=== PATIENT | female | born 1975 | race Caucasian/White ===

== ENCOUNTER 2016-11-08 18:56 | Emergency (ER) | payer OTHER ==
[2016-11-08 20:20] LABS: UA SPECIFIC GRAVITY 1.015 (1.005-1.035); microscopic required? YES; urine erythrocyte 1+ (NEGATIVE)
[2016-11-08 22:12] VITALS: BP 108/86
== END 2016-11-08 22:12 | disposition home or self-care (01) ==
LOC: ED 18:56
PROVIDERS: Emergency Medicine
DX: N39.0 Urinary tract infection, site not specified (principal)
CPT/HCPCS: 87491; 87591; J1885

== ENCOUNTER 2017-05-31 10:56 | Emergency (ER) | payer OTHER ==
[2017-05-31 13:33] LABS: BASOPHIL % 0.4 % (0-2); PLATELET COUNT 239 x10^3mcL (130-400); RED CELL DISTRIBUTION WIDTH 12.6 % (11.5-14.5)
[2017-05-31 13:45] LABS: CARBON DIOXIDE 28.6 mmol/L (21-32); CHLORIDE SERUM 104 mmol/L (98-107); CREATININE SERUM 0.8 mg/dL (0.6-1.0); GFR1 > 60 mL/min; GLUCOSE SERUM 147 mg/dL (74-106); POTASSIUM SERUM 3.7 mmol/L (3.5-5.1); SODIUM SERUM 140 mmol/L (136-145)
[2017-05-31 13:54] LABS: ALKALINE PHOSPHATASE 99 U/L (46-116); ALT/SGPT 39 U/L (14-59); AMYLASE 39 U/L (25-115); AST/SGOT 23 U/L (15-37); BILIRUBIN TOTAL 0.4 mg/dL (0.20-1.00); LIPASE 82 IU/L (73-393); TOTAL PROTEIN, SERUM 7.3 g/dL (6.4-8.2)
[2017-05-31 13:56] LABS: ALBUMIN 3.3 g/dL (3.4-5.0)
[2017-05-31 15:45] LABS: microscopic required? YES; urine erythrocyte NEGATIVE (NEGATIVE)
[2017-05-31 16:36] VITALS: BP 110/60
== END 2017-05-31 16:38 | disposition home or self-care (01) ==
LOC: ED 10:56
PROVIDERS: Emergency Medicine
DX: R10.9 Unspecified abdominal pain (principal); R11.10 Vomiting, unspecified; R19.7 Diarrhea, unspecified; E46 Unspecified protein-calorie malnutrition
CPT/HCPCS: 83880; J0500; J3490; J7030

== ENCOUNTER 2017-08-10 10:28 | Emergency (ER) | payer OTHER ==
[~2017-08-10] VITALS: Ht 157.5 cm; Wt 64.9 kg
[2017-08-10 10:36] VITALS: Ht 157.5 cm; Wt 64.9 kg
[2017-08-10 11:36] VITALS: BP 101/65
== END 2017-08-10 11:36 | disposition home or self-care (01) ==
LOC: ED 10:28
DX: B34.9 Viral infection, unspecified (principal); J03.90 Acute tonsillitis, unspecified; Z90.5 Acquired absence of kidney

== ENCOUNTER 2018-01-03 20:45 | Emergency (ER) | payer OTHER ==
[~2018-01-03] VITALS: Ht 154.9 cm; Wt 64.6 kg
[2018-01-03 20:48] VITALS: Ht 154.9 cm; Wt 64.6 kg
[2018-01-03 23:02] VITALS: BP 123/79
== END 2018-01-03 22:55 | disposition home or self-care (01) ==
LOC: ED 20:45
PROC: 3E023NZ Introduction of Analgesics, Hypnotics, Sedatives into Muscle, Percutaneous Approach (ICD-10-PCS; principal; 2018-01-03)
DX: S39.012A Strain of muscle, fascia and tendon of lower back, initial encounter (principal); X58.XXXA Exposure to other specified factors, initial encounter; Y92.9 Unspecified place or not applicable
CPT/HCPCS: J1885

== ENCOUNTER 2018-08-21 16:18 | Emergency (ER) | payer OTHER ==
[~2018-08-21] VITALS: Ht 160 cm; Wt 66.7 kg
[2018-08-21 16:29] VITALS: Ht 160 cm; Wt 66.7 kg
[2018-08-21 18:27] VITALS: BP 110/74
== END 2018-08-21 18:27 | disposition home or self-care (01) ==
LOC: ED 16:18
DX: M54.9 Dorsalgia, unspecified (principal); R53.1 Weakness; M79.605 Pain in left leg; M79.604 Pain in right leg
CPT/HCPCS: J1885

== ENCOUNTER 2018-12-08 18:50 | Emergency (ER) | payer OTHER ==
[~2018-12-08] VITALS: Ht 157.5 cm; Wt 66.2 kg
[2018-12-08 19:29] VITALS: Ht 157.5 cm; Wt 66.2 kg
[2018-12-08 20:03] VITALS: BP 101/66
== END 2018-12-08 20:03 | disposition home or self-care (01) ==
LOC: ED 18:50
DX: B86 Scabies (principal); Z90.5 Acquired absence of kidney

== ENCOUNTER 2019-02-14 17:47 | Emergency (ER) | payer OTHER ==
[~2019-02-14] VITALS: Ht 157.5 cm; Wt 65.4 kg
[2019-02-14 18:17] VITALS: Ht 157.5 cm; Wt 65.4 kg
[2019-02-14 19:42] VITALS: BP 104/65
== END 2019-02-14 19:42 | disposition home or self-care (01) ==
LOC: ED 17:47
DX: L53.9 Erythematous condition, unspecified (principal); N64.4 Mastodynia; Z45.812 Encounter for adjustment or removal of left breast implant

== ENCOUNTER 2019-04-14 10:10 | Emergency (ER) | payer OTHER ==
[~2019-04-14] VITALS: Ht 157.5 cm; Wt 64.9 kg
[2019-04-14 10:26] VITALS: Ht 157.5 cm; Wt 64.9 kg
[2019-04-14 12:51] LABS: BASOPHIL % 0.6 % (0-2); PLATELET COUNT 216 x10^3mcL (130-400); RED CELL DISTRIBUTION WIDTH 13.1 % (11.5-14.5)
[2019-04-14 13:17] LABS: CALCIUM 8.6 mg/dL (8.5-10.1); CARBON DIOXIDE 28.6 mmol/L (21-32); CHLORIDE SERUM 104 mmol/L (98-107); CREATININE SERUM 0.6 mg/dL (0.6-1.0); GFR1 > 60 mL/min; GLUCOSE SERUM 89 mg/dL (74-106); POTASSIUM SERUM 4.5 mmol/L (3.5-5.1); SODIUM SERUM 138 mmol/L (136-145)
[2019-04-14 13:21] LABS: ALBUMIN 3.4 g/dL (3.4-5.0); ALKALINE PHOSPHATASE 86 U/L (46-116); ALT/SGPT 27 U/L (14-59); AST/SGOT 24 U/L (15-37); BILIRUBIN TOTAL 0.16 mg/dL (0.20-1.00); LIPASE 105 IU/L (73-393); TOTAL PROTEIN, SERUM 7.2 g/dL (6.4-8.2)
[2019-04-14 14:00] VITALS: BP 106/74
== END 2019-04-14 14:00 | disposition home or self-care (01) ==
LOC: ED 10:10
PROVIDERS: Emergency Medicine
DX: M79.605 Pain in left leg (principal); M79.604 Pain in right leg
CPT/HCPCS: J1885